=== PATIENT | male | born 1990 | race Caucasian/White ===

== ENCOUNTER 2016-11-26 09:05 | Emergency (ER) | payer OTHER ==
[~2016-11-26] VITALS: Ht 172.7 cm; Wt 74.8 kg
--- NOTE | 2016-11-26 09:25 | NUR ---
[facility]REP SENT TO LAB. Addendum: 11/26/16 at 0944 by ROB CORRECTION: RAPID INFLUENZA FROM [facility] SENT TO LAB.
--- NOTE | 2016-11-26 10:15 | NUR ---
MSE COMPLETED. PT D/C'D HOME, ACI/WORK NOTE GIVEN. PT AMBULATED W/O DIFF/TOOK ALL BELONGINGS.
--- NOTE | 2016-11-26 10:15 | NUR ---
ORAL TEMP=99.6, QO=317.
[2016-11-26 10:18] VITALS: BP 118/78
== END 2016-11-26 10:18 | disposition home or self-care (01) ==
LOC: ER 09:05
DX: J06.9 Acute upper respiratory infection, unspecified (principal); R50.9 Fever, unspecified
CPT/HCPCS: 87400; A4663